=== PATIENT | female | born 1965 | race Caucasian/White ===

== ENCOUNTER 2018-07-04 12:45 | Inpatient (IN) | payer OTHER ==
[2018-07-04] MEDS ORDERED: Morphine 4 MG/ML VIAL ONE (13:34)
[2018-07-04 15:17] VITALS: BMI 30.7
[2018-07-04] MEDS ORDERED: Sodium Chloride 0.9% 1,000 ML IV SCH (16:11)
[2018-07-04] MEDS ORDERED: Ondansetron ODT 4 MG TAB SL PRN (16:11)
[2018-07-04] MEDS ORDERED: Ondansetron HCl/PF 4 MG/2 ML Vial IVP PRN ×2 (16:11→17:53)
[2018-07-04] MEDS ORDERED: Morphine 2 MG/ML SYRINGE SLOW IVP PRN (16:28)
[2018-07-04] MEDS ORDERED: Vancomycin HCl 1 GM in Premix Bag 1 BAG IVPB SCH (16:30)
[2018-07-04] MEDS ORDERED: MEROPENEM 1 GM/50 ML 1 GM in Premix Bag 1 BAG IVPB SCH (17:00)
[2018-07-04] MEDS ORDERED: Insulin Regular 300 UNITS/3 ML VIAL SC PRN (17:53)
[2018-07-04] MEDS ORDERED: VANCOMYCIN/ RENALLY ADJUST ANTIBIOTICS IVPB PRN (17:53)
[2018-07-04] MEDS ORDERED: Dextrose 50% Abboject 50 ML SYRINGE SLOW IVP PRN (17:53)
[2018-07-04] MEDS ORDERED: Ondansetron ODT 4 MG TAB PO PRN (17:53)
[2018-07-04] MEDS ORDERED: Acetaminophen 325 MG TAB PO PRN (17:53)
[2018-07-04] MEDS ORDERED: Senokot S 8.6-50 MG TAB PO PRN (17:53)
[2018-07-04] MEDS ORDERED: Dextrose 5% in Water 1,000 ML IV PRN (17:53)
[2018-07-04] MEDS: HYDROcodone/Acetaminophen 5/325 mg Tablet PO PRN (18:41)
[2018-07-04] MEDS: Piperacillin/Tazobactam 3.375 GM in Sodium Chloride 0.9% 100 ML IVPB SCH ×2 (18:42→23:05)
[2018-07-04] MEDS: Sodium Chloride 0.9% 1,000 ML IV SCH (18:43)
[2018-07-04] MEDS: Morphine 2 MG/ML SYRINGE SLOW IVP PRN (19:57)
[2018-07-04] MEDS: Mirtazapine 30 MG TAB PO SCH (19:58)
[2018-07-04] MEDS: cloNIDine 0.1 MG TAB PO SCH (19:58)
[2018-07-04] MEDS: Baclofen 10 MG TAB PO SCH (19:58)
[2018-07-04] MEDS: Simvastatin 40 MG TAB PO SCH (19:58)
[2018-07-04] MEDS: Vancomycin HCl 1 GM in Premix Bag 1 BAG IVPB SCH (19:58)
[2018-07-04] MEDS ORDERED: hydrALAZINE 20 MG/ML VIAL SLOW IVP PRN (20:31)
--- NOTE | 2018-07-05 00:59 | HP ---
DATE OF ADMISSION: 07/04/2018 The patient was seen and examined on 07/04/2018. CHIEF COMPLAINT: Swelling of the left side of the face of 3 days duration. HISTORY OF PRESENT ILLNESS: The patient is a 53-year-old female with diabetes mellitus type 2 and sy stemic lupus erythematosus, hypertension, and dental issues presented to the emergency room with abov e complaints. She was seen in the emergency room this morning for swelling of the left side of the f jarrett along with redness. She recently was diagnosed with dental abscess. Over the last 3 days, the s welling progressively got worse. She also had significant pain over the left half of the face. She denies significant fever or chills. She has not seen a dental surgeon over the last 3 days. She had some nausea; however, denies any vomiting. She felt generally weak and fatigued. The patient was diagnosed with facial cellulitis and was discharged home on oral antibiotics. She re ceived a dose of ceftriaxone in the emergency room along with vancomycin. She was advised to follow up with ENT or oral maxillofacial surgeon. Due to worsening swelling of the face and no response to antibiotics, she presented back to the emerg ency room. A CT scan of the facial bone with contrast showed small periorbital abscess in the mandib le on the left side just to the left side of the midline which does not appear associated with the ab ove presenting symptoms. There was mild mucosal thickening of the left maxillary sinus. She receive d meropenem. Vital signs in the emergency room showed temperature 99.1, respiration 18, pulse rate o f 65, O2 saturation 96% on room air with blood pressure of 175/96. PAST MEDICAL HISTORY: 1. Systemic lupus erythematosus. 2. Rheumatoid arthritis. 3. COPD/asthma. 4. Chronic pain syndrome. 5. Anxiety, depression. 6. Diabetes mellitus type 2. 7. Hyperlipidemia. 8. Hypertension. 9. Cervical cancer. PAST SURGICAL HISTORY: 1. Two back surgeries. 2. Appendectomy. 3. Cholecystectomy. 4. Hysterectomy. ALLERGIES: The patient is allergic to LEVAQUIN and NSAID that makes her asthma worse. CURRENT HOME MEDICATIONS: The patient does not remember all of her medications exactly. Family to g et accurate list of medications. SOCIAL HISTORY: The patient currently lives at home with her family. She denies significant alcohol abuse. She smokes on a daily basis. Occasional cannabis use. FAMILY HISTORY: Diabetes and heart disease runs in her family. REVIEW OF SYSTEMS: The following complete review of systems was negative, unless otherwise mentioned in the HPI or below: Constitutional: Weight loss or gain, ability to conduct usual activities. Ski n: Rash, itching. Eyes: Double vision, pain. ENT/Mouth: Nose bleeding, neck stiffness, pain, tend erness. Cardiovascular: Palpitations, dyspnea on exertion, orthopnea. Respiratory: Shortness of b reath, wheezing, cough, hemoptysis, fever or night sweats. Gastrointestinal: Poor appetite, abdomin al pain, heartburn, nausea, vomiting, constipation, or diarrhea. Genitourinary: Urgency, frequency, dysuria, nocturia. Musculoskeletal: Pain, swelling. Neurologic/Psychiatric: Anxiety, depression. Allergy/Immunologic: Skin rash, bleeding tendency. PHYSICAL EXAMINATION: VITAL SIGNS: As discussed above. GENERAL: A 53-year-old female with significant swelling of the left half of the face with erythema. HEENT: Head atraumatic, normocephalic. Sclerae anicteric, erythema with warmth and tenderness of th e left half of the face, multiple dental caries noted, and no fluctuance appreciated. NECK: Supple, no JVD, no carotid bruit. No lymph nodes palpated. LUNGS: Clear to auscultation bilaterally. HEART: S1, S2 present. Regular rate and rhythm. No murmur, rubs, or gallops appreciated. ABDOMEN: Soft, nontender, bowel sounds present. EXTREMITIES: No edema or calf tenderness. NEUROLOGIC: Grossly nonfocal, moves all four extremities. PSYCHIATRY: Alert, awake, oriented x3. SKIN: As discussed above. LYMPH NODES: No palpable lymph nodes in the neck. PERIPHERAL VASCULAR: Radial pulses palpable bilaterally. MUSCULOSKELETAL: No joint swelling or tenderness. LABORATORY AND X-RAY FINDINGS: CBC showed WBC 7.2, hemoglobin 13.9, hematocrit 40.5, platelet 144. Chemistries showed sodium 142, potassium 4.4, chloride 106, bicarbonate 28, BUN 13, creatinine 0.7, g lucose of 204. LFTs in normal range. Lactic acid 1.5. CT scan by my review as discussed above. IMPRESSION: 1. Left-sided facial cellulitis. Please note that patient failed outpatient treatment. 2. Severe dental caries. 3. Diabetes mellitus type 2. 4. Hypertension. 5. Hyperlipidemia. 6. Asthma/chronic obstructive pulmonary disease. 7. Rheumatoid arthritis. 8. Systemic lupus erythematosus. 9. Chronic pain syndrome. 10. Tobacco dependence. 11. Cannabis abuse. 12. Obesity with a BMI 30.8. 13. Chronic kidney disease stage 2. PLAN: The patient will be monitored on the medical floor. We will start her on vancomycin and Zosyn . Blood cultures have been sent. We will resume home medications once confirmed. We will repeat la bs in a.m. We will start her on insulin sliding scale. We will confirm home medications and start a ccordingly. Plan of care was discussed with the patient in detail. She stated understanding.
[2018-07-05] MEDS: Morphine 2 MG/ML SYRINGE SLOW IVP PRN ×2 (01:01→06:21)
[2018-07-05] MEDS: Vancomycin HCl 1 GM in Premix Bag 1 BAG IVPB SCH ×2 (02:59→12:40)
[2018-07-05] MEDS: HYDROcodone/Acetaminophen 5/325 mg Tablet PO PRN ×5 (02:59→20:12)
[2018-07-05 05:23] LABS: #Eosinphils 0.1 thou/uL (0.0-0.7); #Lymphocytes 2.3 thou/uL (1.20-3.40); #Monocytes 0.4 thou/uL (0.11-0.59); #Neutrophils 3.4 thou/uL (1.40-6.50); %Basophils 0.5 % (0.0-1.0); %Eosinophils 1.4 % (0.0-10.0); %Lymphocytes 36.5 % (21.0-51.0); %Monocytes 6.8 % (0.0-10.0); %Neutrophils 54.8 % (42.0-75.0); Hemoglobin 12.2 g/dL (12.0-16.0); Mean Corpuscular HGB CONC 33.8 g/dL (32.0-36.0); Mean Corpuscular Hemoglobin 31.7 pg (27.0-31.0); Mean Platelet Volume 8.7 fL (7.4-10.4); Platelet Count 125 thou/uL (130-400); RBC Distribution Width 12.5 % (11.5-14.5); Red Blood Cell (RBC) Count 3.86 mill/uL (4.20-5.40); White Blood Cell (WBC) Count 6.2 thou/uL (4.8-10.8)
[2018-07-05 05:25] LABS: Anion Gap 11 mmol/L (10-20); BUN (Urea Nitrogen) 6 mg/dL (9.8-20.1); Calc. Creatinine Clearance 128 mL/min (70-130); Calcium 8.4 mg/dL (7.8-10.44); Carbon Dioxide 25 mmol/L (22-29); Chloride 107 mmol/L (98-107); Estimated GFR-MDRD Greater than 90; Glucose 157 mg/dL (70-105); Potassium 3.7 mmol/L (3.5-5.1); Sodium 139 mmol/L (136-145)
[2018-07-05] MEDS: Piperacillin/Tazobactam 3.375 GM in Sodium Chloride 0.9% 100 ML IVPB SCH ×2 (05:46→11:20)
[2018-07-05] MEDS ORDERED: Non-Formulary Item 1 EACH (Linaclotide [Linzess] 290 MCG) PO SCH (07:30)
[2018-07-05] MEDS: Ezetimibe 10 MG TAB PO SCH (08:21)
[2018-07-05] MEDS: Saccharomyces boulardii 250 MG CAP PO SCH (08:21)
[2018-07-05] MEDS: Baclofen 10 MG TAB PO SCH ×3 (08:22→20:11)
[2018-07-05] MEDS ORDERED: Non-Formulary Item 1 EACH (Esomeprazole Magnesium [Nexium] 40 MG) PO SCH (09:00)
[2018-07-05] MEDS: Diazepam 5 MG TAB PO PRN ×2 (11:23→20:15)
[2018-07-05 12:28] LABS: Glucose 168 mg/dL (70-105)
[2018-07-05] MEDS: Insulin Regular 300 UNITS/3 ML VIAL SC PRN (12:42)
[2018-07-05] MEDS: Sodium Chloride 0.9% 1,000 ML IV SCH (15:16)
[2018-07-05] MEDS ORDERED: HYDROcodone/Acetaminophen 10/325 mg Tablet PO PRN (16:29)
--- NOTE | 2018-07-05 16:41 | PDOC.PN ---
- Subjective Encounter Start Date: 07/05/18 Encounter Start Time: 16:39 Ms. Baca was seen today in follow-up of facial cellulitis. She says the swelling has improved some, but she still has some facial pain. - Objective Resuscitation Status: Resuscitation Status FULL:Full Resuscitation MAR Reviewed: Yes Vital Signs & Weight: Vital Signs (12 hours) Temp Pulse Resp BP Pulse Ox 07/05/18 16:15 98.1 F 62 20 152/82 H 99 07/05/18 11:36 98 F 62 20 135/84 99 07/05/18 07:26 98 F 59 L 20 123/79 93 L 07/05/18 07:18 93 L Weight Weight 179 lb 4 oz I&O: 07/04/18 07/05/18 07/06/18 06:59 06:59 06:59 Intake Total 1854 Balance 1854 Result Diagrams: 07/05/18 03:57 07/05/18 11:49 Additional Labs: Accuchecks 07/05/18 07/04/18 04:24 20:18 POC Glucose 156 H 183 H Phys Exam - Physical Examination HEENT: PERRLA poor dentition, with broken, and missing teeth on left + swelling around the eyes, and face, submandibular area Neck: no nodes Respiratory: no wheezing, no rales, no rhonchi, clear to auscultation bilateral Cardiovascular: RRR, no significant murmur, no rub Musculoskeletal: no edema, edema present Dx/Plan (1) Facial cellulitis Code(s): L03.211 - CELLULITIS OF FACE Status: Acute (2) Dental caries into pulp Code(s): K02.9 - DENTAL CARIES, UNSPECIFIED Status: Chronic (3) Diabetes mellitus type 2 in nonobese Code(s): E11.9 - TYPE 2 DIABETES MELLITUS WITHOUT COMPLICATIONS Status: Chronic (4) Hypertension Code(s): I10 - ESSENTIAL (PRIMARY) HYPERTENSION Status: Chronic (5) COPD (chronic obstructive pulmonary disease) Status: Acute - Plan * Facial cellulitis- I suspect this is of dental origin- will change antibiotics to Clindamycin * Continue a probiotic * DM- blood glucose is stable * HTN- blood pressure is stable- continue her home medications * COPD- stable Continue Duonebs as needed.
[2018-07-05] MEDS: Clindamycin/D5W 600 MG in Premix Bag 1 BAG IVPB SCH (17:45)
[2018-07-05] MEDS: Mirtazapine 30 MG TAB PO SCH (20:11)
[2018-07-05] MEDS: cloNIDine 0.1 MG TAB PO SCH (20:11)
[2018-07-05] MEDS: Simvastatin 40 MG TAB PO SCH (20:11)
[2018-07-06] MEDS: Clindamycin/D5W 600 MG in Premix Bag 1 BAG IVPB SCH ×3 (00:22→11:43)
[2018-07-06] MEDS: HYDROcodone/Acetaminophen 5/325 mg Tablet PO PRN ×4 (01:24→14:18)
[2018-07-06] MEDS: Baclofen 10 MG TAB PO SCH ×2 (08:37→14:19)
[2018-07-06] MEDS: Ezetimibe 10 MG TAB PO SCH (08:37)
[2018-07-06] MEDS: Saccharomyces boulardii 250 MG CAP PO SCH (08:38)
[2018-07-06] MEDS: Diazepam 5 MG TAB PO PRN (08:38)
[2018-07-06] MEDS: Insulin Regular 300 UNITS/3 ML VIAL SC PRN (11:48)
[2018-07-06] MEDS: Sodium Chloride 0.9% 1,000 ML IV SCH (15:45)
--- NOTE | 2018-07-06 16:08 | PDOC.PN ---
- Subjective Encounter Start Date: 07/06/18 Encounter Start Time: 16:06 Ms. Baca was seen today in follow-up of facial cellulitis. She is feeling much better, and says the swelling and pain has improved - Objective Resuscitation Status: Resuscitation Status FULL:Full Resuscitation MAR Reviewed: Yes Vital Signs & Weight: Vital Signs (12 hours) Temp Pulse Resp BP Pulse Ox 07/06/18 08:00 97 07/06/18 07:18 98.1 F 61 20 146/86 H 97 Weight Weight 179 lb 4 oz I&O: 07/05/18 07/06/18 07/07/18 06:59 06:59 06:59 Intake Total 1854 2970 480 Balance 1854 2970 480 Result Diagrams: 07/05/18 03:57 07/05/18 11:49 Additional Labs: Accuchecks 07/06/18 07/06/18 07/05/18 11:32 04:30 19:29 POC Glucose 188 H 125 H 185 H 07/05/18 16:12 POC Glucose 133 H Phys Exam - Physical Examination HEENT: PERRLA + poor dentition, broken teeth, but no asbcess, uvulae is midline facial swelling has decreased around the eyes, and chin Neck: no nodes Respiratory: no wheezing, no rales, no rhonchi, clear to auscultation bilateral Cardiovascular: RRR, no significant murmur, no rub Dx/Plan (1) Facial cellulitis Code(s): L03.211 - CELLULITIS OF FACE Status: Acute (2) Dental caries into pulp Code(s): K02.9 - DENTAL CARIES, UNSPECIFIED Status: Chronic (3) Diabetes mellitus type 2 in nonobese Code(s): E11.9 - TYPE 2 DIABETES MELLITUS WITHOUT COMPLICATIONS Status: Chronic (4) Hypertension Code(s): I10 - ESSENTIAL (PRIMARY) HYPERTENSION Status: Chronic (5) COPD (chronic obstructive pulmonary disease) Status: Acute - Plan * Facial cellulitis- much improved * Stable for discharge home..
[2018-07-06 17:38] VITALS: BP 159/85; TEMP 99
--- NOTE | 2018-07-06 21:21 | DIS ---
DATE OF ADMISSION: 07/04/2018 DATE OF DISCHARGE: 07/06/2018 PRIMARY CARE PHYSICIAN: Dr. Aldo Barajas. DISCHARGE DISPOSITION: Home. PRIMARY DISCHARGE DIAGNOSES: 1. Facial cellulitis. 2. Dental caries. 3. Diabetes mellitus, type 2. 4. Hypertension. 5. Systemic lupus. 6. Chronic pain syndrome. DISCHARGE MEDICATIONS: Include Cleocin or clindamycin 300 mg 4 times a day for 10 days; Florastor 25 0 mg daily, #20; Tylenol No.3 one tablet q.4 hours as needed for pain, #20; simvastatin 40 mg at bedt kolton; mirtazapine 45 mg at bedtime; metformin of 1000 mg daily; Linzess 290 mcg daily; Zetia 10 mg matthew ly; Nexium 40 mg daily; diazepam 10 mg t.i.d.; clonidine 0.1 mg at bedtime; baclofen 10 mg t.i.d.; as pirin 81 mg daily; and ProAir 1-2 puffs as needed. CODE STATUS: FULL CODE. ALLERGIES: NSAIDs and LEVOFLOXACIN. HOSPITAL COURSE: Ms. Baca is a pleasant 53-year-old female who presented to the emergency room wit h complaints of severe swelling primarily in the left side of her face. She had a CT scan in the ER done. There was some area of soft tissue swelling and induration on the left beneath the orbit. The re was no gross abscess involving it or nearby and there was some lucency around the root of the left maxillary bicuspid. The patient was admitted and started on IV antibiotics. Initially vancomycin a nd Zosyn, but the antibiotics were transitioned to clindamycin. She had very good results with this. There was no fever and no evidence of elevated white count or left shift. After the swelling had i mproved as well as the pain then the patient was transitioned to an oral antibiotic and will be disch arged to home. The likely culprit is her bad teeth and she will likely need to have multiple tooth e xtractions in the near future. This was explained to the patient, as she had multiple teeth which brown s been pretty much broken off and to the root, but there was no obvious abscess in the mouth. The charline guevara voiced understanding of this and is subsequently being discharged home to have close outpatient followup.
== END 2018-07-06 17:15 | disposition home or self-care (01) | DRG 603 ==
LOC: ERS 12:45 → T4-A 13:27
PROVIDERS: ADMIT Internal Medicine; ATTEND Internal Medicine
DX: L03.211 Cellulitis of face (principal); K02.9 Dental caries, unspecified; J44.9 Chronic obstructive pulmonary disease, unspecified; M06.9 Rheumatoid arthritis, unspecified; M32.9 Systemic lupus erythematosus, unspecified; E78.5 Hyperlipidemia, unspecified; G89.4 Chronic pain syndrome; F41.9 Anxiety disorder, unspecified; F32.9 Major depressive disorder, single episode, unspecified; Z85.41 Personal history of malignant neoplasm of cervix uteri; F17.210 Nicotine dependence, cigarettes, uncomplicated; F12.10 Cannabis abuse, uncomplicated; E66.9 Obesity, unspecified; Z68.30 Body mass index [BMI] 30.0-30.9, adult; I12.9 Hypertensive chronic kidney disease with stage 1 through stage 4 chronic kidney disease, or unspecified chronic kidney disease; E11.22 Type 2 diabetes mellitus with diabetic chronic kidney disease; N18.2 Chronic kidney disease, stage 2 (mild)
CPT/HCPCS: 36415; 36416; 80048; 85025; 90471; 90686; 96374; A4216; G0008; J1815; J2185; J2270; J2543; J3370; J3490; J7050

== ENCOUNTER 2018-07-31 07:40 | Outpatient (CLI) | payer OTHER ==
--- NOTE | 2018-07-31 10:08 | RAD ---
LUMBAR SPINE TWO VIEWS: INDICATIONS: Low back pain. COMPARISON: 09/16/2010 FINDINGS: There has been interval placement of right-sided pedicle screws at L5 and S1 with an interconnecting srini. There is an intervertebral disk cage again seen at L5-S1. Left-sided interpedicular construct is stable. Mild spondylosis of the lumbar spine is stable. Cholecystectomy clips are again seen wit hin the right upper quadrant. No acute fracture is evident. IMPRESSION: Postoperative lumbar spine. POS: GLORIA
--- NOTE | 2018-07-31 10:50 | MRI ---
MRI CERVICAL SPINE NONCONTRAST: DATE: 07/31/2018. HISTORY: A 53-year-old female with M50.30, cervical disk degeneration. Cervicalgia and bilateral cervical radiculopathy. FINDINGS: The cervical spinal cord is normal in size and signal. Alignment is within normal limits. Vertebral body heights are maintained. Mild degenerative facet changes at C7-T1 bilaterally. No severe degen erative facet changes at any level. No severe disk space narrowing at any level. Normal bone marrow signal. Prevertebral spaces are unremarkable. Mild central stenosis at C5-6. No high-grade centra l spinal canal stenosis at any level. No moderate or severe neural foraminal stenosis at any level. Mild left neural foraminal stenosis at C6-7 due to small left uncinate process osteophytes. IMPRESSION: 1. Mild facet osteoarthrosis bilaterally at C7-T1. 2. No high-grade central spinal canal stenosis, high-grade neural foraminal stenosis, or ibis nerve root impingement, identified at any level. POS: CET
--- NOTE | 2018-07-31 11:55 | MRI ---
PRE AND POST CONTRAST ENHANCED MRI IMAGES OF LUMBAR SPINE: HISTORY: Bilateral hip pain and weakness. FINDINGS: Multiplanar, multisequence pre- and postcontrast-enhanced MRI images of lumbar spine obtained. Arnie rison is made to previous exam from 12/29/2011. T12-L1: Unremarkable. L1-2: There is mild facet hypertrophy. The central canal and neural foramen are patent. L2-3: Disk desiccation is seen. There is a mild broad-based disk bulge with bilateral facet and lig amentum flavum hypertrophy. Minimal but not a significant degree of central stenosis seen. The neur al foramen are patent. L3-4: Disk desiccation is seen. There is a broad-based central disk protrusion with bilateral facet hypertrophy resulting in mild central and lateral recess stenosis. This has not significantly delacruz ed since the previous comparison MRI from 12/29/2011. L4-5: Disk desiccation is seen. There is a broad-based disk bulge with bilateral facet hypertrophy resulting in minimal but not significant degree of central stenosis. The neural foramen are patent. L5-S1: Bilateral pedicle screws seen fusing the L5-S1 vertebral levels. No significant degree of ce ntral stenosis seen. There is no significant evidence of right-sided neural foraminal narrowing. Th ere is susceptibility artifact from the left-sided hardware which extends into the left L5-S1 neural foramen making it difficult to evaluate the left L5-S1 neural foramen. However, I do not see definit e evidence of encroachment or stenosis. IMPRESSION: L5-S1 hardware in place. No significant degree of central or neural foraminal narrowing is seen. Th e MRI appearance is stable, unchanged since the previous exam. POS: GLORIA
[2018-07-31] MEDS ORDERED: Gadobenate Dimeglumine 529 MG/1 ML (20ML VIAL) ONE (13:33)
== END 2018-07-31 07:41 | disposition home or self-care (01) ==
LOC: TBSIIMAG 07:40
PROVIDERS: ATTEND Neurological Surgery
DX: M51.36 Other intervertebral disc degeneration, lumbar region (principal); M50.30 Other cervical disc degeneration, unspecified cervical region; M47.893 Other spondylosis, cervicothoracic region; Z98.890 Other specified postprocedural states
CPT/HCPCS: 72100; 72141; 72158; A9579